=== PATIENT | male | born 1975 | race Caucasian/White ===

== ENCOUNTER → 2017-06-03 14:46 | Outpatient (REF) | payer BC, SELFPAY ==
[2017-06-03 19:01] LABS: Basophils % 0.7 % (0.1-2.0); Eosinophils # 0.2 K/mm3 (0.0-0.4); Eosinophils % 7.8 % (0.1-12.0); Hematocrit 40.5 % (42.0-52.0); Hemoglobin 13.4 g/dL (14.1-18.0); Lymphocytes # 1.2 K/mm3 (0.7-4.5); Lymphocytes % 39.5 K/mm3 (10-50); Mean Corpuscular HGB Conc 33.2 g/dL (31.8-35.4); Mean Corpuscular Hemoglobin 32.2 pg (27.0-31.2); Mean Platelet Volume 10.1 fl (7.4-10.4); Monocytes # 0.3 K/mm3 (0.1-1.0); Monocytes % 8.2 % (1.7-9.3); Neutrophils # 1.3 K/mm3 (1.8-7.8); Neutrophils % 43.9 % (37.0-80.0); Red Blood Count 4.17 M/mm3 (4.60-6.20); Red Cell Distribution Width 15.9 % (11.5-17.5)
[2017-06-03 19:37] LABS: Anion Gap 11.1 mEq/L (5-15); Blood Urea Nitrogen 16 mg/dL (7-18); Carbon Dioxide 26 mmol/L (21.0-32.0); Chloride 106 mmol/L (98-107); Creatinine,Serum 1.26 mg/dL (0.70-1.30); Estimated Glomerular Filt Rate 63 ml/min (>60); GFR (African American) 76 ML/MIN (>60); Glucose 143 mg/dL (74-106); Potassium 4.1 mmoL/L (3.5-5.1); Sodium 139 mmol/L (136-145)
[2017-06-03 20:24] LABS: Platelet Count 33 K/mm3 (142-424)
[2017-06-03 20:35] LABS: Hemoglobin A1C 5.2 % (0.0-7.0)
[2017-06-03 20:38] LABS: Erythrocyte Sedimentation Rate 6 mm/hr (0-15)
[2017-06-04 12:04] LABS: Amphetamine/Metha Screen,Urine Negative ng/mL (<1000); Barbiturates Screen,Urine Negative ng/mL (<200); Benzodiazepines Screen,Urine Negative ng/mL (200); Cannabinoid Screen,Urine Negative ng/mL (<50); Cocaine Screen,Urine Negative ng/g (<300); Methadone Screen,Urine Negative ng/mL (<300); Opiate Screen,Urine Negative ng/mL (<300); Phencyclidine Screen,Urine Negative ng/mL (<25)
== END ==
LOC: LAB 14:46
PROVIDERS: Visit Provider Emergency Medicine
DX: R10.10 Upper abdominal pain, unspecified (principal)
CPT/HCPCS: 80048; 80305; 83036; 85025; 85651

== ENCOUNTER → 2017-06-04 10:27 | Outpatient (REF) | payer BC, SELFPAY | LOC: LAB 10:27 | PROVIDERS: Visit Provider Emergency Medicine | DX: Z79.899 Other long term (current) drug therapy (principal) | CPT/HCPCS: 80305 ==

== ENCOUNTER → 2017-07-29 11:09 | Outpatient (REF) | payer MEDICAID, SELFPAY ==
[2017-07-29 14:11] LABS: Amphetamine/Metha Screen,Urine Negative ng/mL (<1000); Barbiturates Screen,Urine Negative ng/mL (<200); Benzodiazepines Screen,Urine Negative ng/mL (200); Cannabinoid Screen,Urine Negative ng/mL (<50); Cocaine Screen,Urine Negative ng/g (<300); Methadone Screen,Urine Negative ng/mL (<300); Opiate Screen,Urine Negative ng/mL (<300); Phencyclidine Screen,Urine Negative ng/mL (<25)
== END ==
LOC: LAB 11:09
PROVIDERS: Visit Provider Emergency Medicine
DX: Z79.899 Other long term (current) drug therapy (principal)
CPT/HCPCS: 80305

== ENCOUNTER → 2018-05-11 12:23 | Outpatient (CLI) | payer MEDICAID, SELFPAY ==
[2018-05-11 13:01] LABS: Basophils % 0.9 % (0.1-2.0); Eosinophils # 0.3 K/mm3 (0.0-0.4); Hematocrit 43.3 % (42.0-52.0); Hemoglobin 13.8 g/dL (14.1-18.0); Lymphocytes # 0.8 K/mm3 (0.7-4.5); Lymphocytes % 25.1 % (10-50); Mean Corpuscular Volume 103.1 fl (80-94); Mean Platelet Volume 11.6 fl (7.4-10.4); Monocytes # 0.2 K/mm3 (0.1-1.0); Monocytes % 6.7 % (1.7-9.3); Neutrophils # 1.8 K/mm3 (1.8-7.8); Neutrophils % 59.4 % (37.0-80.0); Red Cell Distribution Width 15.7 % (11.5-17.5); White Blood Count 3.1 K/mm3 (4.8-10.8)
[2018-05-11 13:03] LABS: Alanine Aminotransferase 62 U/L (12-78); Albumin Level 2.4 gm/dL (3.4-5.0); Albumin/Globulin Ratio 0.6 (1.1-1.8); Alkaline Phosphatase 336 U/L (46-116); Ammonia 69 umol/L (19-54); Anion Gap 7.5 mEq/L (5-15); Aspartate Amino Transferase 59 U/L (15-37); Bilirubin,Total 2.4 mg/dL (0.2-1.0); Blood Urea Nitrogen 10 mg/dL (7-18); Calcium 8.5 mg/dL (8.5-10.1); Carbon Dioxide 33 mmol/L (21.0-32.0); Chloride 100 mmol/L (98-107); Creatinine,Serum 0.98 mg/dL (0.70-1.30); Estimated Glomerular Filt Rate 84 ml/min (>60); GFR (African American) 101 ML/MIN (>60); Globulin 3.9 gm/dl (1.3-3.2); Glucose 302 mg/dL (74-106); Potassium 3.5 mmoL/L (3.5-5.1); Sodium 137 mmol/L (136-145); Total Protein,Serum 6.3 gm/dL (6.4-8.2)
[2018-05-11 13:23] LABS: INR 1.33 (0.9-1.1); Prothrombin Time 13.6 seconds (9.4-11.8)
[2018-05-11 14:08] LABS: Platelet Count 41 K/mm3 (142-424)
[2018-05-11 16:31] LABS: Amphetamine/Metha Screen,Urine Negative ng/mL (<1000); Barbiturates Screen,Urine Negative ng/mL (<200); Benzodiazepines Screen,Urine Negative ng/mL (<200); Cannabinoid Screen,Urine Negative ng/mL (<50); Cocaine Screen,Urine Negative ng/mL (<300); Methadone Screen,Urine Negative ng/mL (<300); Opiate Screen,Urine Negative ng/mL (<300); Phencyclidine Screen,Urine Negative ng/mL (<25)
== END ==
PROVIDERS: Visit Provider Emergency Medicine
DX: K74.60 Unspecified cirrhosis of liver (principal)
CPT/HCPCS: 36415; 80053; 80305; 82140; 85025; 85610

== ENCOUNTER → 2018-06-08 11:19 | Outpatient (POV) | payer MEDICAID, SELFPAY ==
[2018-06-08 11:52] VITALS: BP 149/69; PULSE 95; RESP 18; O2SAT 98
--- NOTE | 2018-06-08 12:08 | HMH.PMCON ---
Assessment and Plan (1) Neuropathy Current visit: Yes Status: Chronic Category: Medical Code(s): G62.9 - Polyneuropathy, unspecified (2) Cirrhosis Current visit: No Status: Chronic Category: Medical Code(s): K74.60 - Unspecified cirrhosis of liver - Assessment and plan all Dx Assessment and Plan for all problems:: Patient is going to follow-up with his primary care in regards to his gabapentin. Patient is not a narcotic candidate. Patient became upset when I discussed with him we would not be prescribing oxycodone to him. Patient's ORT is 11. Patient may benefit from a neurology consult with nerve conduction studies however he states he is not interested in that at this time. Dr. Guidry has reviewed this note and agrees with this plan of care. This note was dictated using voice recognition software and may contain errors or omissions HPI - Data of Consult Consult date: 06/08/18 Requesting Physician: Angélica Hillman APRN Primary Care Provider: Chemo Currie MD - Consult Narrative Reason for consult: Neuropathic pain History of present illness: Mr. Alvarez is a 43 year old male who presents today for consultation in regards to his neuropathic pain. Patient states all activity increases pain while nothing decreases it. He states bilateral feet and legs are numb he rates his pain an 8 out of 10. Patient has multiple comorbidities including esophageal varices from alcohol use and hepatitis. Patient also on a transplant list due to the cirrhosis of his liver. Patient states he is tried and failed Lyrica and Cymbalta. Patient's currently on gabapentin 300 mg 1 p.o. 3 times daily which is very appropriate. Patient states it does help. Patient states that he would like to be on oxycodone. Patient states he buys pills off of the street. CC: Angélica Hillman APRN [facility] History I have reviewed the patient's past medical history: Yes Medical History: Reports:: Diabetes Mellitus Type 2, Gastroesophageal Reflux Disease(GERD), Hypertension Denies:: Peripheral Vascular Disease Other Medical History: Reports: Liver Disease Other Surgeries: Yes: Colonoscopy, EGD Amputation: No Fractures: Yes - *Social History Smoking Status: Never smoker Tobacco Type: cigarettes # Packs/Day (cigarettes): 1 #Yrs smoked (if former smoker): 20 Alcohol Intake: former Alcohol Intake Frequency:: a few times a week Substance Use Type: former substance user *Occupational Status:: disabled Housing: apartment Household Members: other *Travel in the last 8 weeks: None - Psychiatric History Expresses thoughts of harming self/others: None Suicide Plan Description: No Plan Family Hx:: Diabetes, Thyroid Disorder, Cancer Review of Systems - Review of Systems ROS General: no recent weight change, no fever, no sleep disturbances Respiratory: no cough, no shortness of air, no recurring pulmonary infections Cardiovascular/Peripheral Vascular: No chest pain, No palpitations, no edema, no shortness of breath. Gastrointestinal: no incontinence, normal bowel movements reported Genitourinary: no incontinence Musculoskeletal: Bilateral leg pain Psychiatric: normal mood/ affect Neurological: [denies weakness in extremities], [denies balance issues] Meds Home Medications Medication Instructions Recorded Confirmed Type cholecalciferol (vitamin D3) 3,000 50,000 unit PO QWEEK tab 04/21/17 05/11/18 History unit tablet cholecalciferol (vitamin D3) 5,000 5,000 unit PO ONCE 04/21/17 05/11/18 History unit capsule lactulose 10 gram/15 mL (15 mL) 10 g PO ONCE PRN 04/21/17 05/11/18 History oral solution nadolol 40 mg tablet 40 mg PO QDAY 04/21/17 05/11/18 History rifaximin 550 mg tablet 550 mg PO BID 04/21/17 05/11/18 History spironolactone 25 1 tab PO QDAY 04/21/17 05/11/18 History mg-hydrochlorothiazide 25 mg tablet [id number]-[id number]-mpqjeky cap PO TID cap 06/03/17 05/11/18 History 3,000-9,500-15,000 unit
--- NOTE | 2018-06-08 12:11 | P.CONS_ITS ---
Assessment and Plan (1) Neuropathy Current visit: Yes Status: Chronic Category: Medical Code(s): G62.9 - Polyneuropathy, unspecified (2) Cirrhosis Current visit: No Status: Chronic Category: Medical Code(s): K74.60 - Unspecified cirrhosis of liver - Assessment and plan all Dx Assessment and Plan for all problems:: Patient is going to follow-up with his primary care in regards to his gabapentin. Patient is not a narcotic candidate. Patient became upset when I discussed with him we would not be prescribing oxycodone to him. Patient's ORT is 11. Patient may benefit from a neurology consult with nerve conduction studies however he states he is not interested in that at this time. Dr. Guidry has reviewed this note and agrees with this plan of care. This note was dictated using voice recognition software and may contain errors or omissions HPI - Data of Consult Consult date: 06/08/18 Requesting Physician: Angélica Hillman APRN Primary Care Provider: Chemo Currie MD - Consult Narrative Reason for consult: Neuropathic pain History of present illness: Mr. Alvarez is a 43 year old male who presents today for consultation in regards to his neuropathic pain. Patient states all activity increases pain while nothing decreases it. He states bilateral feet and legs are numb he rates his p ain an 8 out of 10. Patient has multiple comorbidities including esophageal varices from alcohol use and hepatitis. Patient also on a transplant list due to the cirrhosis of his liver. Patient states he is tried and failed Lyrica and Cymbalta. Patient's currently on gabapentin 300 mg 1 p.o. 3 times daily which is very appropriate. Patient states it does help. Patient states that he would like to be on oxycodone. Patient states he buys pills off of the street. CC: Angélica Hillman APRN [facility] History I have reviewed the patient's past medical history: Yes Medical History: Reports:: Diabetes Mellitus Type 2, Gastroesophageal Reflux Disease(GERD), Hypertension Denies:: Peripheral Vascular Disease Other Medical History: Reports: Liver Disease Other Surgeries: Yes: Colonoscopy, EGD Amputation: No Fractures: Yes - *Social History Smoking Status: Never smoker Tobacco Type: cigarettes # Packs/Day (cigarettes): 1 #Yrs smoked (if former smoker): 20 Alcohol Intake: former Alcohol Intake Frequency:: a few times a week Substance Use Type: former substance user *Occupational Status:: disabled Housing: apartment Household Members: other *Travel in the last 8 weeks: None - Psychiatric History Expresses thoughts of harming self/others: None Suicide Plan Description: No Plan Family Hx:: Diabetes, Thyroid Disorder, Cancer Review of Systems - Review of Systems ROS General: no recent weight change, no fever, no sleep disturbances Respiratory: no cough, no shortness of air, no recurring pulmonary infections Cardiovascular/Peripheral Vascular: No chest pain, No palpitations, no edema, no shortness of breath. Gastrointestinal: no incontinence, normal bowel movements reported Genitourinary: no incontinence Musculoskeletal: Bilateral leg pain Psychiatric: normal mood/ affect Neurological: [denies weakness in extremities], [denies balance issues] Meds Home Medications Medication Instructions Recorded Confirmed Type cholecalciferol (vitamin D3) 3,000 50,000 unit PO QWEEK tab 04/21/17 05/11/18 History unit tablet cholecalciferol (vitam
== END ==
PROVIDERS: PCP Emergency Medicine; Visit Provider Clinical Nurse Specialist Family Health
DX: G62.9 Polyneuropathy, unspecified (principal); K74.60 Unspecified cirrhosis of liver
CPT/HCPCS: 99202

== ENCOUNTER → 2018-06-13 12:30 | Outpatient (CLI) | payer MEDICAID, SELFPAY ==
[2018-06-13 13:25] LABS: Basophils % 0.4 % (0.1-2.0); Eosinophils # 0.6 K/mm3 (0.0-0.4); Eosinophils % 8.8 % (0.1-12.0); Hematocrit 37.6 % (42.0-52.0); Hemoglobin 12.9 g/dL (14.1-18.0); Lymphocytes # 1.8 K/mm3 (0.7-4.5); Lymphocytes % 24.8 % (10-50); Mean Corpuscular HGB Conc 34.4 g/dL (31.8-35.4); Mean Corpuscular Hemoglobin 33.1 pg (27.0-31.2); Mean Corpuscular Volume 96.4 fl (80-94); Monocytes # 0.5 K/mm3 (0.1-1.0); Monocytes % 7.5 % (1.7-9.3); Neutrophils # 4.2 K/mm3 (1.8-7.8); Neutrophils % 58.6 % (37.0-80.0); Platelet Count 63 K/mm3 (142-424); Red Cell Distribution Width 16.5 % (11.5-17.5); White Blood Count 7.2 K/mm3 (4.8-10.8)
[2018-06-13 13:52] LABS: Hemoglobin A1C 5.8 % (0.0-7.0)
[2018-06-13 14:46] LABS: Anion Gap 7.7 mEq/L (5-15); Blood Urea Nitrogen 14 mg/dL (7-18); Calcium 7.6 mg/dL (8.5-10.1); Carbon Dioxide 30 mmol/L (21.0-32.0); Chloride 98 mmol/L (98-107); Creatinine,Serum 0.85 mg/dL (0.70-1.30); Estimated Glomerular Filt Rate 99 ml/min (>60); GFR (African American) 120 ML/MIN (>60); Glucose 168 mg/dL (74-106); Potassium 3.7 mmoL/L (3.5-5.1); Sodium 132 mmol/L (136-145)
== END ==
PROVIDERS: Visit Provider Emergency Medicine
DX: E11.9 Type 2 diabetes mellitus without complications (principal)
CPT/HCPCS: 80048; 83036; 85025